=== PATIENT | female | born 1975 | race Caucasian/White ===

== ENCOUNTER 2019-02-13 21:30 | Emergency (ER) | payer SELFPAY ==
[2019-02-13] VITALS (23 sets, daily range): BP systolic 110–116; BP diastolic 54–75; PULSE 87–117; RESP 10–30; TEMP 36.7; O2SAT 93–99
--- NOTE | 2019-02-13 21:45 | ED.GENADUL_ITS ---
Discharge Plan Disposition Patient Disposition: HOME Condition: Good Discharge Details Chief Complaint: OD/Poison Clinical Impression: Accidental opiate poisoning Primary Care Provider: None,None ED Provider: Moses Sanchez Discharge Instructions Additional Instructions: Avoid any drug use in the future. If you feel there is any possible drug or alcohol problems please follow-up with the kids activities coach. Return to ED for increasing lethargy, confusion other problems. Medical Decision Making Patient arrives here awake and alert after accidental heroin overdose. She received a total of 4 mg of Narcan. She reports that she had never used heroin in the past. No intent of self-harm. Patient will be maintained on monitor and observed for the next few hours. IV fluids running. Warm blankets given. EKG unremarkable. Patient remained awake and alert throughout her stay here. She was seen by kids activities coach. She was offered Narcan at discharge which she declined. She states that she will never use any type of drugs in the future. Discharged in good condition. ECG Data Attestation: I personally reviewed and interpreted this ECG (s) as follows: Prior ECG tracings: not available for review Interpretation: Sinus at 98. Normal axis and intervals. No significant ST changes. Fair amount of artifact. HPI General Mode of arrival: EMS . Date/Time Provider Initiated Documentation: 02/13/19 21:44 . Limitations to Documentation: no limitations . Information obtained by: patient and EMS . HPI Narrative: Patient presents to ED by EMS after they were called for unresponsive patient. Patient was found to be unresponsive with no pulse and no respirations. CPR was started. She received Narcan intranasally as well as IV once it was established. After a total of 4 mg of Narcan, she woke up. She was transported here without further incident with IV fluids going. Patient had told EMS she had not used anything. In the room she admitted to snorting 1 bag of heroin which she states she has never done before in her life. She denies any physical complaints. This was not intentional or self-harm. She also had a few drinks of beer prior to using heroin tonight. Related Data Allergies Allergy/AdvReac Type Severity Reaction Status Date / Time cefaclor [From [facility]] Allergy Severe Hives Unverified 11/10/14 15:14 General Stated Complaint: OD/Poison OLEG: 2 Review of Systems Narrative: As documented in HPI otherwise negative as below. Const: no fever, chills, weakness Resp: no cough, SOB, pleuritic pain CV: no CP, diaphoresis, edema, syncope GI: no abdominal pain, nausea, vomiting, diarrhea Neuro: no headache, numbness, focal weakness, confusion PFSH Medical History No active medical problems (Chronic) Surgical History S/P breast augmentation (Chronic) Social History Smoking/Tobacco Use Status: Current every day Alcohol Intake: current Alcohol Intake frequency: a few times a week Drug use: Never Do you feel safe at home: Yes Do you feel safe in your relationship?: Yes Exam Narrative Exam Narrative: Vitals: Afebrile. Mild tachycardia but normal room air pulse ox. Const: WDWN female in NAD. HEENT: NC/AT. Normal facial exam. Eyes: Pupils small with some reaction. Neck: Supple. Trachea midline. Lungs: Normal respiratory effort. Lungs are clear. Cor: RRR without murmur/gallop. Good radial pulses. GI: Soft. NT/ND. Neuro: A+O x 3. CN grossly in tact. Normal speech, mental status, strength and sensation. Ext: No C/C/E. Skin: Warm and dry. Psych: Denies depression or suicidal ideation. Course Vital Signs Vital signs: Vital Signs Temperature 98.1 F 02/13/19 21:37 Pulse 113 H 02/13/19 21:37 Respiratory Rate 24 02/13/19 21:37 Blood Pressure 110/54 L 02/13/19 21:37 Pulse Oximetry 97 02/13/19 21:37 Temperature 98.1 F 02/13/19 21:37 Pulse 113 H 02/13/19 21:37 Respiratory Rate 24 02/13/19 21:37 Blood Pressure 110/54 L 02/13/19 21:37 Blood Pressure Position Sitting 02/13/19 21:37 Pulse Oximetry 97 02/13/19 21:37 Oxygen Delivery Method Room Air 02/13/19 21:37 Oxygen Flow Rate 0 02/13/19 21:37 Pain Level 0 02/13/19 21:37
== END 2019-02-13 23:50 | disposition home or self-care (01) ==
PROVIDERS: Emergency Provider Emergency Medicine
DX: T40.1X1A Poisoning by heroin, accidental (unintentional), initial encounter (principal); F11.10 Opioid abuse, uncomplicated
CPT/HCPCS: 93005; 99284; 93010

== ENCOUNTER 2019-03-22 13:30 | Emergency (ER) | payer SELFPAY ==
[2019-03-22 13:38] VITALS: BP 106/42; PULSE 102; RESP 16; TEMP 36.7; O2SAT 98
[2019-03-22 13:48] LABS: Clarity Cloudy (Clear); Glucose Color Interference mg/dL (Negative); Leukocyte Esterase Color Interference (Negative); Nitrite Color Interference (Negative)
[2019-03-22 13:49] LABS: Bilirubin Color Interference (Negative); Blood Color Interference (Negative); Ketones Color Interference mg/dL (Negative); Urobilinogen Color Interference EU/dL (Up TO 0.2)
[2019-03-22 14:04] LABS: WBC >50 HPF (0-5)
[2019-03-22 14:05] LABS: Bacteria Rare HPF (Negative); C & S Indicated? Yes
--- NOTE | 2019-03-22 14:10 | ED.GENADUL_ITS ---
Discharge Plan Disposition Patient Disposition: HOME Discharge Details Chief Complaint: Urinary Clinical Impression: UTI (urinary tract infection) Primary Care Provider: None,None ED Provider: Andrey Horvath Home Meds and New Rx's Prescriptions: New ciprofloxacin HCl 250 mg tablet 250 mg PO Q12H 3 Days Qty: 6 RF: 0 No Action ascorbic acid (vitamin C) [Vitamin C] 1,000 mg Tablet Extended Release 1,000 mg PO DAILY RF: 0 ibuprofen [IBU-200] 200 mg Tablet 400 mg PO Q6H PRNRF: 0 No Known Home Meds RF: 0 Discharge Instructions Instructions: Urinary Tract Infection in Women (ED) Additional Instructions: Your urinalysis is significant for evidence of infection. It is very important that you take the entire course of the antibiotics for which we have provided you. Return to the emergency department should you develop worsening symptoms, fever vomiting or severe pain. Referrals: Andrey Horvath PA [Emergency Provider] - Return if symptoms worsen Discharge Data Discharge Date/Time-TO BE ENTERED AT DEPARTURE: 03/22/19 14:20 Medical Decision Making This is a nontoxic-appearing 43-year-old female with symptoms concerning for urinary tract infection. UA confirms UTI. Vital signs are otherwise stable and she shows no outward signs of sepsis/pyelonephritis. Antibiotic prescription for ciprofloxacin 250 mg provided. Discussed return precautions HPI General Date/Time Provider Initiated Documentation: 03/22/19 14:10 . HPI Narrative: Patient is a 43-year-old female with a significant history for frequent urinary tract infections presents to the emergency department with roughly 6 days of UTI symptoms. She admits to frequency, urgency and dysuria. No fevers, vomiting or back pain. Related Data Home Medications Medication Instructions Recorded Confirmed Unknown [No Known Home Meds] 03/22/19 03/22/19 ascorbic acid (vitamin C) [Vitamin 1,000 mg PO DAILY 03/22/19 03/22/19 C] ciprofloxacin HCl 250 mg PO Q12H 3 Days #6 tab 03/22/19 ibuprofen [IBU-200] 400 mg PO Q6H PRN 03/22/19 03/22/19 Previous Rx's Medication Instructions Recorded ciprofloxacin HCl 250 mg PO Q12H 3 Days #6 tab 03/22/19 Allergies Allergy/AdvReac Type Severity Reaction Status Date / Time [facility] Allergy Severe Hives Unverified 03/22/19 13:43 General Stated Complaint: Urinary OLEG: 4 Review of Systems Constitutional Constitutional: Denies chills and Denies fever(s) Gastrointestinal Gastrointestinal: Denies abdominal pain, Denies nausea and Denies vomiting Genitourinary Genitourinary: Denies hematuria, Reports dysuria, Denies flank pain, Reports urinary hesitancy and Reports urinary urgency PFSH Medical History No active medical problems (Chronic) Surgical History S/P breast augmentation (Chronic) Social History Smoking/Tobacco Use Status: Current every day Alcohol Intake: current Alcohol Intake frequency: a few times a week Drug use: Never Do you feel safe at home: Yes Do you feel safe in your relationship?: Yes Exam Const General: cooperative, healthy appearing, comfortable and no acute distress Chest Chest: normal inspection of the chest Resp Effort & Inspection: normal respiratory effort and able to speak in complete sentences Back/Spine/Pelvis Back: no CVA tenderness Course Vital Signs Vital signs: Vital Signs Temperature 36.7 C 03/22/19 13:38 Pulse 102 H 03/22/19 13:38 Respiratory Rate 16 03/22/19 13:38 Blood Pressure 106/42 L 03/22/19 13:38 Pulse Oximetry 98 03/22/19 13:38 Temperature 36.7 C 03/22/19 13:38 Temperature Source Temporal Artery Scan 03/22/19 13:38 Pulse 102 H 03/22/19 13:38 Respiratory Rate 16 03/22/19 13:38 Respiratory Effort Non-Labored 03/22/19 13:42 Blood Pressure 106/42 L 03/22/19 13:38 Blood Pressure Position Sitting 03/22/19 13:38 Pulse Oximetry 98 03/22/19 13:38 Oxygen Delivery Method Room Air 03/22/19 13:38 Oxygen Flow Rate 0 03/22/19 13:38 Pain Level 9 03/22/19 13:48 Lab/Test Results Lab/Test Results: 03/22/19 13:35 Urine - Reflex from Ua Urine Culture - Pending Laboratory Tests Range/Units 03/22/19 13:35 Urine Color (Yellow) [place] Urine Clarity (Clear) Cloudy Urine pH (5-8) 5.0 Ur Specific [place] (1.005-1.025) 1.020 Urine Protein (Negative) mg/dL Color interference Urine Ketones (Negative) mg/dL Color interference Urine Blood (Negative) Color interference Urine Nitrite (Negative) Color interference Urine Bilirubin (Negative) Color interference Urine Urobilinogen (Up TO 0.2) EU/dL Color interference Ur Leukocyte Esterase (Negative) Color interference Urine RBC Not Applicable Urine WBC (0-5) HPF >50 H Ur Epithelial Cells Not Applicable Urine Crystals Not Applicable Urine Bacteria (Negative) HPF Rare Urine Mucus Not Applicable Ur Culture Indicated? Yes Urine Glucose (Negative) mg/dL Color interference
== END 2019-03-22 14:21 | disposition home or self-care (01) ==
PROVIDERS: Emergency Provider Physician Assistant
DX: N39.0 Urinary tract infection, site not specified (principal); B96.20 Unspecified Escherichia coli [E. coli] as the cause of diseases classified elsewhere; Z87.440 Personal history of urinary (tract) infections
CPT/HCPCS: 87077; 99283; 81003; 81015; 87086; 87186

== ENCOUNTER 2021-04-24 11:22 | Emergency (ER) | payer SELFPAY ==
[2021-04-24 11:26] VITALS: BP 114/70; PULSE 101; RESP 14; TEMP 36.6; O2SAT 97
[2021-04-24 12:02] LABS: Bilirubin Negative (Negative); Blood Small (Negative); Clarity Sl Cloudy (Clear); Glucose Negative (Negative); Ketones Trace mg/dL (Negative); Leukocyte Esterase Small (Negative); Nitrite Negative (Negative); Specific Gravity >= 1.030 (1.005-1.025); Urobilinogen 0.2 EU/dL (Up TO 0.2)
--- NOTE | 2021-04-24 12:03 | ED.GENADUL_ITS ---
Discharge Plan Disposition Patient Disposition: HOME Condition: Stable Discharge Details Clinical Impression: Dysuria, Vaginal discharge Primary Care Provider: None,None ED Provider: Kory Yin Home Meds and New Rx's Prescriptions: New nitrofurantoin macrocrystal 100 mg capsule 100 mg PO BID 5 Days Qty: 10 0RF Rx Instructions: must administer with a meal/food Continued ibuprofen [IBU-200] 200 mg Tablet 400 mg PO Q6H [id number] Discharge Instructions Instructions: Dysuria (ED) Additional Instructions: Please be sure to follow-up with your test results and be seen by AMBULATORY NURSE; return to the emergency department for worsening symptoms Referrals: Ashley Jean MD [ [facility] STAFF PHYSICIAN] - 1 week Medical Decision Making 45-year-old female history of previous trichomoniasis, occasional UTIs, presents with urinary frequency dysuria and lower back discomfort. Denies nausea vomiting fevers chills nontoxic, resting comfortably currently, denies new sexual partners, I counseled patient that given her endorsement of mild vaginal discharge a pelvic exam would be warranted to assess cervix and vagina as well as collect gonorrhea chlamydia and vaginal pathogen swabs, patient endorses she feels uncomfortable with his examination and would like to self swab as she has done this in the past. I am amenable to this time. Consider likely UTI versus BV versus trichomoniasis versus STI versus less likely or malignancy. Pending results of UA and self swab will likely treat for suspected bacterial infection whether urinary vaginal. Will encourage follow-up with AMBULATORY NURSE and primary care. No clinical evidence of pyelonephritis at this time or systemic toxicity 14: 01 resting comfortably no acute distress. Lab would not except patient self swab, patient was amenable to pelvic exam. Scant white vaginal discharge consider physiologic versus infectious however cervix appears normal no bleeding, small inorganic material consider piece of tampon removed from area near cervix, patient did not want to stay for results and asked if we could call her, would like a prescription in case she has a UTI, I am amenable to this plan as most of her symptoms are urinary with frequency and dysuria and her discharge was not completely abnormal however will follow up vaginal pathogen gonorrhea chlamydia sent out. Return precautions given. Will be given AMBULATORY NURSE referral. HPI General Date/Time Provider Initiated Documentation: 04/24/21 11:31 . HPI Narrative: 45-year-old female history of trichomoniasis, presents with dysuria and urinary frequency, also endorses minimal malodorous vaginal discharge, denies vaginal bleeding, last menstrual period was last month, no new sexual partners, denies any flank pain nausea vomiting fevers or chills Related Data Home Medications Medication Instructions Recorded Confirmed ibuprofen 200 mg tablet (IBU-200) 400 mg PO Q6H PRN 03/22/19 04/24/21 nitrofurantoin macrocrystal 100 mg 100 mg PO BID 5 Days #10 cap 04/24/21 capsule Previous Rx's Medication Instructions Recorded nitrofurantoin macrocrystal 100 mg 100 mg PO BID 5 Days #10 cap 04/24/21 capsule Allergies Allergy/AdvReac Type Severity Reaction Status Date / Time cefaclor [From [facility]] Allergy Severe Hives Unverified 04/24/21 11:28 ciprofloxacin Allergy Hives Unverified 04/24/21 11:29 General Stated Complaint: Urinary OLEG: 4 Review of Systems Narrative: Review of Systems Constitutional: negative Eyes: negative ENT: negative Cardiovascular: negative Respiratory: negative Gastrointestinal: negative : Dysuria, urinary frequency, vaginal discharge Musculoskeletal: negative Skin: negative Neurologic: negative Psych: negative PFSH All Active Problems (Updated 04/24/21 @ 14:06 by Kory Yin MD) Dysuria (Acute) Vaginal discharge (Acute) S/P breast augmentation (Chronic) No active medical problems (Chronic) Social History Smoking/Tobacco Use Status: Current every day Tobacco Type: cigarettes Smoking risk assessment performed?: Yes Alcohol Intake: current Alcohol Intake frequency: a few times a month Drug use: Daily Substance use type: marijuana Do you feel safe at home: Yes Do you feel safe in your relationship?: Yes Exam Narrative Exam Narrative: Physical Examination General: alert, awake, cooperative, resting comfortably, no acute distress HEENT: normocephalic, atraumatic; PERRL, EOM intact, conjunctiva normal; no nasal discharge; moist mucous membranes, oral and pharyngeal mucosa normal, tolerating secretions Neck: supple, trachea midline; full ROM Chest: normal to inspection Respiratory: normal respiratory effort, speaking in full sentences, clear to auscultation, no wheezing, rales or rhonchi Cardiac: regular rate, regular rhythm, S1S2 intact, no murmurs rubs or gallops GI: abdomen soft, non-tender, non-distended; no palpable mass or hepatosplenomegaly : Normal external genitalia, scant white vaginal discharge on examination, normal-appearing cervix, small approximately 2 mm possible cotton foreign body consider small portion of retained tampon versus fabric, no bleeding no lesions Back: No CVA tenderness Skin: no lesions, rashes or trauma appreciated Neuro: AAOx3, normal speech, moving all extremitie Psych: Appropriate mood and affect Course Vital Signs Vital signs: Vital Signs Temperature 36.6 C 04/24/21 11:26 Pulse 101 H 04/24/21 11:26 Respiratory Rate 14 04/24/21 11:26 Blood Pressure 114/70 04/24/21 11:26 Pulse Oximetry 97 04/24/21 11:26 Temperature 36.6 C 04/24/21 11:26 Pulse 101 H 04/24/21 11:26 Respiratory Rate 14 04/24/21 11:26 Respiratory Effort Non-Labored 04/24/21 11:30 Blood Pressure 114/70 04/24/21 11:26 Blood Pressure Position Sitting 04/24/21 11:26 Pulse Oximetry 97 04/24/21 11:26 Oxygen Delivery Method Room Air 04/24/21 11:26 Oxygen Flow Rate 0 04/24/21 11:26 Pain Level 7 04/24/21 11:30 Lab/Test Results Lab/Test Results: Laboratory Tests Range/Units 04/24/21 11:48 Urine Color (Yellow) Yellow Urine Clarity (Clear) Sl Cloudy Urine pH (5-8) 6.0 Ur Specific [place] (1.005-1.025) >= 1.030 H Urine Protein (Negative) mg/dL 30 H Urine Ketones (Negative) mg/dL Trace H Urine Blood (Negative) Small H Urine Nitrite (Negative) Negative Urine Bilirubin (Negative) Negative Urine Urobilinogen (Up TO 0.2) EU/dL 0.2 Ur Leukocyte Esterase (Negative) Small H Urine Glucose (Negative) mg/dL Negative PAWSS Have you Been Recently Intoxicated or Drunk Within the Last 30 days?: No Have you Ever Experienced Previous Episodes of Alcohol Withdrawal?: No Have you ever Experienced Withdrawal Seizures?: No Have you ever Experienced Delirium Tremens(DT)s?: No Have you ever undergone Alcohol Rehabilitation Treatment (i.e, inpt ot outpatient treatment programs)?: No Have you ever Experienced Blackouts?: No Have you ever Combined Alcohol with other Downers within the last 90 days?: No Have you ever Combined Alcohol with any other Substance of Abuse during the last 90 days?: No Positive Blood Alcohol level on Presentation? [PCS.BAL]: No Evidence of Increased Autonomic Activity (i.e. HR>120, tremor, sweating, agitation, nausea)?: No Result: 0
[2021-04-24 12:08] LABS: Bacteria Few HPF (Negative); C & S Indicated? Yes; Casts Negative LPF (Negative); Crystals Few Amorphous HPF (Negative); Epithelial Cells Few HPF (Negative); Mucus Trace (Negative)
--- NOTE | 2021-04-24 15:51 | NUR.NOTE ---
Nursing Note: PT INFO FAXED TO [facility] TO BE SEEN WITHIN THE WEEK FOR FOLLOW UP AND REPEAT EXAM. CHANDU, ED
== END 2021-04-24 14:18 | disposition home or self-care (01) ==
PROVIDERS: Emergency Provider Emergency Medicine
DX: R30.0 Dysuria (principal); N89.8 Other specified noninflammatory disorders of vagina
CPT/HCPCS: 81025; 87491; 87591; 99284; 81003; 81015; 87086; 87480; 87510; 87660; 99283

== ENCOUNTER 2023-02-28 08:25 | Emergency (ER) | payer MEDICAID, SELFPAY ==
[2023-02-28 08:27] VITALS: BP 120/86; PULSE 90; RESP 18; TEMP 36.7; O2SAT 99
--- NOTE | 2023-02-28 08:28 | W.ED.GENAD ---
Discharge Plan Disposition Patient Disposition: Home Condition: Good Discharge Details Clinical Impression: Gardnerella vaginalis infection Primary Care Provider: None,None ED Provider: Emeli Morse Home Meds and New Rx's Prescriptions: New clindamycin HCl 300 mg capsule 300 mg PO Q12H Qty: 14 0RF No Action ibuprofen [IBU-200] 200 mg Tablet 400 mg PO Q6H PRN Discharge Instructions Instructions: Bacterial Vaginosis (ED) Additional Instructions: 1. Make a follow-up appointment with [facility] internal medicine. The [facility] office will contact you for a follow-up appoint with [facility]. Either of those providers will be able to give you the results of the lab tests that were done today and which are still pending including all the STIs, syphilis, hepatitis and HIV. 2. Do not have intercourse until all results are back and you have discussed them with your physicians. 3. Start clindamycin 300 mg twice a day for 7 days for the vaginitis. We recommend you take a probiotic while on antibiotics. Bring this prescription with you to your follow-up appointments. 4. Alternate acetaminophen every 3 hours with ibuprofen as needed for pain. Return here for any new or worrisome symptoms. Discharge Data Discharge Date/Time-TO BE ENTERED AT DEPARTURE: 02/28/23 11:32 Discharge Physician: Emeli Morse Medical Decision Making This is a 47-year-old female who presents to the emergency department with vaginal discharge after unprotected intercourse with 1 partner who she thinks has been unfaithful. She has been seen in the [place] [facility] but does not have a primary care or [facility]. On exam she does have some whitish discharge but no fishy odor. There is no cervical motion tenderness and no rash or lesions. She most likely has bacterial vaginosis or possibly trichomoniasis. She is perimenopausal. She is requesting that we test her for everything. I have explained to her that most of the lab work will not be returned today and she will need to follow-up with [facility] for the majority of the results. We will do a wet prep smear to rule out trichomoniasis and bacterial vaginosis as well as candidiasis. She has not had any itching and the discharge is not consistent with bacterial vaginosis. Patient voiced understanding and agreement with the plan. Differential Diagnosis Differential Diagnosis: PID, STI, bacterial vaginosis, Medical Records Medical records reviewed: Yes I reviewed the patient's medical records. ECG Data Interpretation: Vaginal pathology smear is positive for Gardnerella. Since the patient has been treated with metronidazole and had a recurrence we will treat her with clindamycin p.o. I have consulted [facility] regarding the dose of 300 twice daily for 7 days. HPI General Mode of arrival: ambulatory. Date/Time Provider Initiated Documentation: 02/28/23 08:28. Limitations to Documentation: no limitations. Information obtained by: patient. HPI Narrative: Time seen was on arrival in triage and in bed 9. The patient is a 47-year-old perimenopausal female who is -0-2-3. She has irregular menstrual cycles only having 1 or 2 a year. She has had a unprotected intercourse with 1 partner who she suspects may be having intercourse with other partners. She presents with with several weeks of vaginal discharge after being treated with p.o. and PV metronidazole. She tells me she has had bacterial vaginosis and trichomonas in the past. She tells me that she wants to be checked for everything. I have explained that we can certainly test her for HIV and hepatitis but most of those will be a send out. 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 She has been seen in the [place] ER several times for vaginal discharge. No dysuria. No rashes Related Data Home Medications Medication Instructions Recorded Confirmed ibuprofen 200 mg tablet (IBU-200) 400 mg PO Q6H PRN 03/22/19 04/24/21 clindamycin HCl 300 mg capsule 300 mg PO Q12H #14 caps 02/28/23 Previous Rx's Medication Instructions Recorded clindamycin HCl 300 mg capsule 300 mg PO Q12H #14 caps 02/28/23 Allergies Allergy/AdvReac Type Severity Reaction Status Date / Time cefaclor [From Ceclor] Allergy Severe Hives Unverified 04/24/21 11:28 ciprofloxacin Allergy Hives Unverified 04/24/21 11:29 General OLEG: 4 Review of Systems Narrative: see hpi PFSH All Active Problems Gardnerella vaginalis infection (Acute) S/P breast augmentation (Chronic) No active medical problems (Chronic) Social History Smoking/Tobacco Use Status: Current every day Tobacco Type: cigarettes Smoking risk assessment performed?: Yes Alcohol Intake: current Alcohol Intake frequency: a few times a month Drug use: Daily Substance use type: marijuana Housing: house Do you feel safe at home: Yes Do you feel safe in your relationship?: Yes Exam Const General: cooperative, healthy appearing, comfortable, no acute distress, well developed, well groomed and well hydrated Nutritional Appearance: average body habitus and well nourished Orientation: alert, awake and oriented x3 HENMT Head: normal to inspection, normocephalic and atraumatic Ears: hearing grossly normal bilaterally and external ears normal General nose exam: external nose normal, nares normal and no nasal discharge Face and sinus: normal facial exam, sinuses nontender and face symmetric Mouth: oral mucosae normal, lip normal, tongue normal, oropharynx normal, moist mucous membranes and other (Normal phonation. The patient is handling secretions.) Throat: posterior oropharynx normal and uvula midline Eyes General: appearance normal, both eyes and all related structures Eyelids: eyelids normal Conjunctivae: conjunctivae normal Sclera: sclerae normal Cornea: corneas normal Pupils: PERRL EOM: EOM intact bilaterally and No nystagmus Neck Neck: normal visual inspection, full ROM, no lymphadenopathy, no meningeal signs, trachea midline and supple Lymphatic: no lymphadenopathy noted Chest Chest: normal inspection of the chest Resp Effort & Inspection: normal respiratory effort, able to speak in complete sentences, no audible wheezes, no nasal flaring, no respiratory distress, no retractions, no stridor, not tachypneic, no tracheal deviation, no use of accessory muscles, No prolonged expiratory phase and other (Normal inspiratory to expiratory ratio.) Auscultation: clear to auscultation bilaterally, no rales, no rhonchi, no wheezes and no rubs Tactile Fremitus: tactile fremitus absent Cardio Jugular venous pressure: no JVD Palpation: normal PMI Rate: regular rate Rhythm: regular rhythm Heart Sounds: S1 normal, S2 normal, no gallops, no murmurs and no rubs GI Inspection: normal to inspection and non-distended Palpation: soft, no hepatosplenomegaly, no guarding and nontender Percussion: normal to percussion Auscultation: normal bowel sounds General: bladder normal to palpation and No CVA tenderness External Female Exam: normal external appearance Speculum Exam - Vagina: normal appearance of the vagina, abnormal vaginal discharge white, no foreign bodies, no lacerations, no lesions and nontender Speculum Exam - Cervix: normal appearance of the cervix, closed and nontender Bimanual Exam- Vagina & Uterus: normal bimanual exam, bladder normal to palpation, uterine mobility normal, uterine shape normal, No tender, non-tender and not enlarged Bimanual Exam- Adnexa, other: normal adnexae OB/External & Speculum: no foreign bodies Back/Spine/Pelvis Back: no CVA tenderness and No back tenderness Cervical Spine: normal cervical lordosis, cervical ROM normal, No cervical muscular tenderness, No pain with cervical ROM, No cervical spinal tenderness and No step off deformity Thoracic/Lumbar Spine: thoracic and lumbar spine normal to inspection, No thoracic spinal tenderness and No lumbar spinal tenderness Pelvis: no pain with anterior-posterior compression and no pain with lateral compression Skin General skin exam: no rashes or lesions noted, turgor normal, no petechiae, no purpura and other (Skin is normal for ethnicity.) Lesions: no lesions Rashes: no rashes Trauma: no lacerations or abrasions Neuro General: patient alert, patient awake, patient oriented x3, moves all extremities, no meningeal signs, no focal motor deficits and CN's II-XI intact bilaterally Cranial Nerves: CN's II-XI intact bilaterally, PERRL, accommodation normal, EOM intact bilaterally, no nystagmus, facial strength normal, tongue midline, hearing normal and no nystagmus Cognition: normal cognition Speech: speech normal Gait: normal gait Motor: muscle tone normal throughout and strength 5/5 throughout Sensory Exam: no sensory deficits noted Extrem General: normal to inspection, full ROM, capillary refill normal, no clubbing, cyanosis or edema and no calf tenderness Psych Appearance: grossly normal Affect: normal affect Attitude: cooperative Thought Process: normal Thought Content: normal Insight: insight good Judgment: judgment good Other: The patient appears to have capacity make medical decisions. Course I have advised the patient to take a probiotic and to avoid sexual intercourse until she has followed up with [facility] and obtain the results of the labs drawn today. I have advised her to continue the process of establishing care with [facility] and to return to the emergency department for any new or worrisome symptoms. The patient voiced understanding agreement with the discharge plan. All her questions and concerns were addressed prior to discharge
[2023-02-28 08:54] LABS: Bilirubin Negative (Negative); Blood Negative (Negative); Clarity Clear (Clear); Glucose Negative (Negative); Ketones Negative (Negative); Leukocyte Esterase Negative (Negative); Nitrite Negative (Negative); Urobilinogen 0.2 mg/dL (Up to 0.2); pH 5.5 (5-8)
[2023-02-28 10:06] LABS: HCG Qual (Serum) Negative
--- NOTE | 2023-02-28 11:19 | NUR.NOTE ---
Faxed referral to [facility] for Pt to be seen for Vanessa, Vaginal Discharge and Follow up on the Labs within 1-2 weeks.
[2023-02-28] MEDS: Clindamycin 150 MG CAP, 12 CAPS/BTL 1800 MG (11:24)
[2023-02-28] MEDS: Clindamycin 300 MG CAP PO (11:24)
[2023-03-01 18:02] LABS: HIV-1/2 Ag & Ab Screen Negative (Negative)
[2023-03-01 18:11] LABS: Hepatitis A Antibody IgM Negative (Negative); Hepatitis B Core Antibody Negative (Negative); Hepatitis B surface Ag Negative (Negative); Hepatitis C Ab w Rflx HCV PCR Negative (Negative)
[2023-03-02 11:06] LABS: Syphilis Serology (RPR) Negative (Negative)
[2023-03-02 12:48] LABS: Chlamydia Result Negative (Negative); GC Result Negative (Negative)
--- NOTE | 2023-03-08 10:10 | NUR.NOTE ---
Addendum entered by Rosie Luis 03/08/23 10:27: Spoke with Dr. Amaya. At his direction, I called the pt back, told her that she would need to be re-evaluated in order to prescribe any further medications. She can try return to ED, [facility], or try calling PCP that she is getting set up with. Original Note: Accessed pt chart to determine diagnosis of visit. Pt called stating clindamycin she took and is no better. Will give note to Dr. Amaya. Nursing Note:
== END 2023-02-28 11:32 | disposition home or self-care (01) ==
PROVIDERS: Emergency Provider Emergency Medicine Emergency Medical Services
DX: N76.0 Acute vaginitis (principal); B96.89 Other specified bacterial agents as the cause of diseases classified elsewhere
CPT/HCPCS: 86704; 86709; 86803; 87340; 87389; 87491; 87591; 99283; 81003; 84703; 86592; 87480; 87510; 87660; 99284

== ENCOUNTER 2023-04-26 10:58 | Outpatient (REF) | payer MEDICAID, SELFPAY | END 2023-04-26 10:59 | disposition home or self-care (01) | LOC: LBN 10:58 | PROVIDERS: Visit Provider Obstetrics & Gynecology | DX: N89.8 Other specified noninflammatory disorders of vagina (principal) | CPT/HCPCS: 87480; 87510; 87660 ==

== ENCOUNTER 2023-07-22 02:35 | Outpatient (CLI) | payer MEDICAID, SELFPAY ==
[2023-07-22 12:51] LABS: ALT 27 U/L (14-59); AST 14 U/L (15-37); Albumin 3.9 g/dL (3.4-5.0); Alkaline Phosphatase 68 U/L (46-116); Anion Gap 5.4 mmol/L (3-11); BUN 10 mg/dL (7-18); Bilirubin, Total 0.2 mg/dL (0.2-1.0); CO2 28.6 mmol/L (21.0-32.0); CREATININE 0.7 mg/dL (0.55-1.02); Calcium 9.4 mg/dL (8.5-10.1); Calculated LDL 70 mg/dL (<100); Chloride 104 mmol/L (98-107); Cholesterol 136 mg/dL (<200); Estimated GFR 106.62 (mL/min/1.73m2); Glucose 100 mg/dL (74-106); HDL Cholesterol 57 mg/dL (40-60); Potassium 4.1 mmol/L (3.5-5.1); Sodium 138 mmol/L (136-145); Total Protein 7.4 g/dL (6.4-8.2); Triglyceride 49 mg/dL (<150)
== END 2023-07-22 02:36 | disposition home or self-care (01) ==
LOC: LBO 02:35
PROVIDERS: PCP Family Medicine; Visit Provider Family Medicine
DX: Z13.6 Encounter for screening for cardiovascular disorders (principal)
CPT/HCPCS: 36415; 80053; 80061

== ENCOUNTER 2023-10-11 16:18 | Outpatient (REF) | payer MEDICAID, SELFPAY ==
[2023-10-13 12:16] LABS: Chlamydia Result Negative (Negative); GC Result Negative (Negative)
[2023-10-13 14:23] LABS: Bacterial Vaginosis (BV) Positive (Negative); Candida glabrata Negative (Negative); Candida species group Negative (Negative); Trichomonas vaginalis Negative (Negative)
== END 2023-10-11 16:19 | disposition home or self-care (01) ==
LOC: LBN 16:18
PROVIDERS: PCP Family Medicine; Visit Provider Nurse Practitioner
DX: N89.8 Other specified noninflammatory disorders of vagina (principal)
CPT/HCPCS: 81513; 87481; 87491; 87591; 87661

== ENCOUNTER 2023-12-15 14:46 | Outpatient (REF) | payer MEDICAID, SELFPAY | END 2023-12-15 14:47 | disposition home or self-care (01) | LOC: LBN 14:46 | PROVIDERS: PCP Family Medicine; Visit Provider Family Medicine | DX: N89.8 Other specified noninflammatory disorders of vagina (principal) | CPT/HCPCS: 87480; 87510; 87660 ==

== ENCOUNTER 2023-12-16 11:52 | Outpatient (CLI) | payer MEDICAID, SELFPAY ==
--- NOTE | 2023-12-16 13:26 | DI.RAD_ITS ---
Exam(s) XR LUMBAR SPINE COMP W FLEX/EX EXAM: XR LUMBAR SPINE COMP W FLEX/EX CLINICAL HISTORY: M54.50 Low back pain. TECHNIQUE: 2D digital imaging was performed. Seven views. Flexion and extension lateral views were performed in addition to the routine views. Exam was performed upright. COMPARISON: No exams were available for comparison FINDINGS: BONES: No fracture or destructive lesion. Vertebral body heights are maintained. Mild facet hypert rophy identified at L5-S1. DISKS: Moderate narrowing of the L5-S1 disc space. Intervertebral disc spaces are maintained. ALIGNMENT: Lumbar spinal alignment is within normal limits. No subluxation with flexion or extension. SOFT TISSUE: Normal. Lung bases are clear. IMPRESSION: Mild degenerative changes at L5- S1. DATA REPOSITORY: RADIATION DOSE DELIVERED:
== END 2023-12-16 12:12 ==
LOC: DI 11:53
PROVIDERS: PCP Family Medicine; Visit Provider Nurse Practitioner Family
DX: M47.817 Spondylosis without myelopathy or radiculopathy, lumbosacral region (principal)
CPT/HCPCS: 72114

== ENCOUNTER 2024-01-17 09:34 | Outpatient (REF) | payer MEDICAID, SELFPAY | END 2024-01-17 09:35 | disposition home or self-care (01) | LOC: LBN 09:34 | PROVIDERS: PCP Family Medicine; Visit Provider Nurse Practitioner | DX: N89.8 Other specified noninflammatory disorders of vagina (principal) | CPT/HCPCS: 87480; 87510; 87660 ==

== ENCOUNTER 2024-01-26 02:23 | Outpatient (CLI) | payer MEDICAID, SELFPAY ==
--- NOTE | 2024-01-26 06:30 | DI.MRI_ITS ---
Exam(s) MR LUMBAR SPINE WO EXAM: MR LUMBAR SPINE WO CLINICAL HISTORY: Low back pain to left lower extremity,lumbar spondylosis,radiculitis,m54.42. TECHNIQUE: Multiplanar multisequence MRI of the Lumbar spine was performed. COMPARISON: CR XR LUMBAR SPINE COMP W FLEX/EX from 12/16/2023 FINDINGS: Conus medullaris is at normal level. There is no evidence of conus mass nor subjacent clumping of in trathecal nerve roots to suggest arachnoiditis. The distal thecal sac appears unremarkable.There is no evidence of Tarlov intrasacral cysts nor other significant findings within the sacral canal Bones:There are no fractures nor ominous osseous lesions in the lumbar vertebral bodies and visualize d sacrum. With respect to the individual levels... T12-L1: Unremarkable L1-2: Normal disc height and signal. No disc herniation nor central canal stenosis.No foraminal steno sis L2-3: Normal disc height. No disc herniation nor central canal stenosis.No foraminal stenosis.No face t arthropathy. L3-4: Normal disc height. No disc herniation or central canal stenosis.No foraminal stenosis.No face t arthropathy. L4-5: Slightly decreased disc height. There is a central subligamentous disc protrusion at this leve l which extends posteriorly 3 mm and is 10 mm wide. This slightly indents the anterior thecal sac. Central canal dimensions are lower normal. There is no extension into the exiting neural foramina wh ich are patent bilaterally. Facet joints appear unremarkable at this level. L5-S1: There is chronic disc space narrowing at this level and Modic type 2 sub endplate fatty marrow changes on the left side of the disc space. There is also lateral osteophytes on the left side at t his level. Posteriorly at this level there is no disc herniation or central canal stenosis. Mild un ilateral left-sided foraminal stenosis noted. However, the exiting nerve root does not appear flatte cherie Soft tissues: paraspinal soft tissues appear unremarkable. IMPRESSION: 1. At L4-5 level there is a central subligamentous disc protrusion as described above. 2. At L5-S1 level there is chronic advanced disc space narrowing and lateral left osteophytes. There is no disc herniation at this level. There is mild left-sided foraminal stenosis at this level. DATA REPOSITORY:
== END 2024-01-26 02:43 ==
LOC: DI 02:23
PROVIDERS: PCP Family Medicine; Visit Provider Anesthesiology Pain Medicine
DX: M47.816 Spondylosis without myelopathy or radiculopathy, lumbar region; M54.16 Radiculopathy, lumbar region
CPT/HCPCS: 72148

== ENCOUNTER 2024-02-16 17:48 | Outpatient (REF) | payer MEDICAID, SELFPAY | END 2024-02-16 17:49 | disposition home or self-care (01) | LOC: LBN 17:48 | PROVIDERS: PCP Family Medicine; Visit Provider Advanced Practice Midwife | DX: N89.8 Other specified noninflammatory disorders of vagina (principal) | CPT/HCPCS: 87480; 87510; 87660 ==

== ENCOUNTER 2024-03-12 02:57 | Outpatient (CLI) | payer MEDICAID, SELFPAY ==
--- NOTE | 2024-03-12 07:30 | DI.MAMMO_ITS ---
Exam(s) MG MAMMO SCREENING 60 MIN DUR EXAM: MG MAMMO SCREENING 60 MIN DUR CLINICAL HISTORY: breast cancer screening,RUPTURED LT IMPLANT,t85.43XA TECHNIQUE: Bilateral full field digital CC and MLO mammographic images were obtained with 3D tomosyn thesis and utilizing computer aided detection (CAD). COMPARISON: This is a baseline examination. FINDINGS: The patient has bilateral breast implants. The patient has a known ruptured left breast implant. Th e right breast implant is unremarkable. Masses/Architectural Distortion: None seen. Microcalcifications: No suspicious pleomorphic-type are seen. Skin Thickening/Nipple Retraction: None. IMPRESSION: 1. There is no evidence for malignancy seen at this time. 2. Unless there is more urgent need, screening mammography is recommended, as per [employer] [place] guidelines. BI-RADS Category 1 - Negative Breast Density - Category B - Scattered areas of fibroglandular density Breast density category C or D implies that the patient has dense breast tissue. Dense breast tissue is very common and is not abnormal but dense breast tissue can make it harder to find cancer on a ma mmogram. Also, dense breast tissue may increase their breast cancer risk. This information about the result of the mammogram report was provided to the patient to raise their awareness. Use this report when you speak with the patient about their risks for breast cancer, which includes their family hist ory. At that time, you may recommend for more screening tests (Ultrasound or MRI) as they might be us eful based on their risk. A negative radiographic report should not delay biopsy if a dominant or clinically suspicious mass is present. Up to ten percent of cancers are not identified on mammography. A negative report may reinforce clinical impression. Adenosis and dense breasts may obscure an underlying neoplasm. False positive reports average 6 to 10%. Patient will receive a letter notifying them of these results.
== END 2024-03-12 03:17 ==
LOC: DI 02:57
PROVIDERS: PCP Family Medicine; Visit Provider Family Medicine
DX: T85.43XA Leakage of breast prosthesis and implant, initial encounter (principal); Z12.31 Encounter for screening mammogram for malignant neoplasm of breast; R92.323 Mammographic fibroglandular density, bilateral breasts
CPT/HCPCS: 77063; 77067

== ENCOUNTER 2024-06-21 10:15 | Outpatient (CLI) | payer MEDICAID, SELFPAY ==
--- NOTE | 2024-06-21 15:15 | DI.RAD_ITS ---
Exam(s) XR CHEST 2V PA LATERAL EXAM: XR CHEST 2V PA LATERAL CLINICAL HISTORY: J98.8 RESPIRATORY DISORDER RHONCHI AND WHEEZING TECHNIQUE: 2D digital imaging was performed. Two views. COMPARISON: No exams were available for comparison FINDINGS: HEART: Normal size. Aorta: Not dilated. PULMONARY VASCULATURE: Normal. MEDIASTINUM: Unremarkable. LUNGS: Clear. Emphysematous changes greater at the right lung apex. PLEURAL SPACE: No pleural effusion or pneumothorax. BONE:Unremarkable for age. SOFT TISSUES: Unremarkable. IMPRESSION: No acute abnormality. DATA REPOSITORY: RADIATION DOSE DELIVERED:
== END 2024-06-21 10:35 ==
LOC: DI 11-01 10:15
PROVIDERS: PCP Family Medicine; Visit Provider Family Medicine
DX: J98.8 Other specified respiratory disorders (principal)
CPT/HCPCS: 71046

== ENCOUNTER 2024-06-25 11:57 | Outpatient (CLI) | payer MEDICAID, SELFPAY ==
[2024-06-25 12:31] LABS: Abs Immature Grans 0.06 10^3/uL (0.0-0.06); Absolute Eosinophil Count 0.03 10^3/uL (0.0-0.7); Absolute Lymphocyte Count 0.87 10^3/uL (1.2-3.4); Basophils % 0.6 %; Eosinophils % 0.2 %; HCT 39.4 % (36.0-46.0); Immature Grans % 0.4 %; MCH 31.2 pg (27.0-33.0); MCV 95 fL (80-95); MPV 8.9 fL (8.0-11.0); Monocytes % 7.4 %; Neutrophils % 85.4 %; Platelet Count 372 10^3/uL (130-400); RBC 4.17 10^6/uL (3.93-5.22); RDW 12.9 % (11.7-14.6); RDW-SD 44.9 fL; WBC 14.53 10^3/uL (4.4-10.8)
[2024-06-25 12:32] LABS: Absolute Basophil Count 0.09 10^3/uL (0.0-0.2); Absolute Monocyte Count 1.08 10^3/uL (0.1-0.8); Absolute Neutrophil Count 12.41 10^3/uL (1.2-6.7)
[2024-06-25 12:51] LABS: D-Dimer 585 ng/mlFEU (<500)
[2024-06-27 20:45] LABS: Coccidioides Ab Scr w/Reflex Negative (Negative)
== END 2024-06-25 11:58 | disposition home or self-care (01) ==
LOC: LBO 11:58
PROVIDERS: PCP Family Medicine; Visit Provider Family Medicine
DX: R05.9 Cough, unspecified (principal); J98.8 Other specified respiratory disorders
CPT/HCPCS: 36415; 86635; 87798; 85025; 85379

== ENCOUNTER 2024-06-27 02:21 | Outpatient (CLI) | payer MEDICAID, SELFPAY ==
--- NOTE | 2024-06-27 07:32 | DI.CT_ITS ---
Exam(s) CT CHEST PE CTA EXAM: CT CHEST PE CTA CLINICAL HISTORY: +D-dimer,? PE,PLEURODYNIA,r07.81. TECHNIQUE: Imaging Protocol: Axial CT angiography was performed with multi-slice acquisition and mu lti-planar and/or 3D reconstructions. Lung Computer Aided Detection (CAD) was utilized. CONTRAST MATERIAL: Intravenous: Omnipaque 350 contrast volume:70 mL COMPARISON: MR MR LUMBAR SPINE WO from 01/26/2024 CR XR CHEST 2V PA LATERAL from 06/21/2024 FINDINGS: Tracheobronchial tree: Patent where visualized. No bronchiectasis. There is mucous plugging seen in airway branches in the left lingula and left lower lobe. Pulmonary parenchyma: There are severe emphysematous changes present particularly in the right lung a pex. Bilateral multifocal infiltrates are now present, most marked in the left lingula and the left lower lobe. Pulmonary Arteries: No evidence of filling defect to suggest pulmonary emboli. Mediastinum and Sakina: Mildly enlarged lymph nodes are seen in the mediastinum which are likely reacti ve. The esophagus is grossly unremarkable. Visualized thyroid gland: Unremarkable. Pleura: There is a tiny left pleural effusion. No right pleural effusion. No pneumothorax. Heart: The heart is not dilated. No coronary artery calcifications are seen. No pericardial effusion. Aorta: Thoracic aorta non-dilated. No evidence of dissection. Upper abdomen: There is a small cyst in the left kidney. No follow-up is recommended. This was pre sent on the MRI of the lumbar spine from 01/26/2024. Soft tissues: Unremarkable. Bones: Within normal limits for the patient's age. IMPRESSION: 1. No evidence of pulmonary embolism, thoracic aortic dissection or aneurysm. 2. Multifocal infiltrates most suggestive of pneumonia. 3. Severe pulmonary emphysema. RADIATION DOSE DELIVERED: 60.04mGy.cm Total DLP DATA REPOSITORY: All CT scans at this facility are submitted to the National Radiology Data Registry (NRDR) Dose Index Registry (DIR) with the [employer] (ACR). RADIATION OPTIMIZATION: All CT scans at this facility use at least one of these dose optimization te chniques: automated exposure control; mA and/or kV adjustment per patient size (includes targeted exa ms where dose is matched to clinical indication); or iterative reconstruction.
[2024-06-27] MEDS: Normal Saline - Diluent 50 ML VIAL IJ (11:22)
[2024-06-27] MEDS: Omnipaque 350 MG/ML 500 ML BTL-Imaging package 70 ML IJ (11:23)
== END 2024-06-27 02:41 ==
LOC: DI 02:23
PROVIDERS: PCP Family Medicine; Visit Provider Family Medicine
DX: R07.81 Pleurodynia (principal); J43.8 Other emphysema
CPT/HCPCS: 71275

== ENCOUNTER 2024-07-26 15:23 | Emergency (ER) | payer MEDICAID, SELFPAY ==
[2024-07-26 15:25] VITALS: BP 116/60; PULSE 81; RESP 18; O2SAT 97
[2024-07-26 15:26] VITALS: BP 116/60; PULSE 80; O2SAT 97
[2024-07-26 15:31] VITALS: BP 104/57; PULSE 73; O2SAT 97
--- NOTE | 2024-07-26 15:45 | DI.CT_ITS ---
Exam(s) CT BRAIN NECK CTA EXAM: CT BRAIN NECK CTA CLINICAL HISTORY: severe sudden onset headaches [id number]. TECHNIQUE: Imaging Protocol: Axial CT angiography was performed with multi-slice acquisition and mu lti-planar and/or 3D reconstructions. CONTRAST MATERIAL: Intravenous: Omnipaque 350 contrast volume:70 mL COMPARISON: No exams were available for comparison FINDINGS: CT Head W/O and W: Ventricles and Extra axial spaces: Normal in size and morphology for the patient's age. Hemorrhage: None. Cerebral parenchyma: No mass effect or evidence of an acute territorial infarct. Midline shift: None. Brainstem/Cerebellum: Normal. Calvarium: Normal. Visualized Paranasal sinuses/Mastoids: There is near complete opacification of the left maxillary sin us. There is mild mucosal thickening in the right maxillary sinus. The remaining visualized paranas al sinuses are clear. There is a small amount of fluid seen in the left mastoid air cells. The righ t mastoid air cells are clear. Soft Tissues: Unremarkable. Enhancement: Unremarkable. CTA Neck W: Common Carotid: Right: No dissection, occlusion or significant stenosis. Left: No dissection, occlusion or significant stenosis. External Carotid: Right: No occlusion or significant stenosis. Left: No occlusion or significant stenosis. Internal Carotid: Right: No dissection, occlusion or significant stenosis. Left: No dissection, occlusion or significant stenosis. Vertebral Artery: Right: No dissection, occlusion or significant stenosis. Left: No dissection, occlusion or significant stenosis. Lung Apices: Moderate emphysematous changes are seen in the lungs. Bones: Within normal limits for the patient's age. Soft Tissues: Normal. Thyroid gland: There are few tiny hypodensities in the thyroid gland. No follow-up is recommended. CTA Brain W: Internal Carotid Arteries: Normal. Anterior Cerebral Arteries: Right: No aneurysm, occlusion or significant stenosis. Left: No aneurysm, occlusion or significant stenosis. Middle Cerebral Arteries: Right: No aneurysm, occlusion or significant stenosis. Left: No aneurysm, occlusion or significant stenosis. Posterior Cerebral Arteries: Right: No aneurysm, occlusion or significant stenosis. Left: No aneurysm, occlusion or significant stenosis. Vertebral Arteries: Right: No aneurysm, occlusion or significant stenosis. Left: No aneurysm, occlusion or significant stenosis. Basilar Artery: No aneurysm, occlusion or significant stenosis. IMPRESSION: 1. No large vessel occlusion or significant stenosis on the CT angiography of the head. 2. No acute intracranial process. 3. No occlusion or significant stenosis on the CT angiography of the neck. 4. Left maxillary sinusitis. RADIATION DOSE DELIVERED: 2,188.16mGy.cm Total DLP DATA REPOSITORY: All CT scans at this facility are submitted to the National Radiology Data Registry (NRDR) Dose Index Registry (DIR) with the [employer] (ACR). RADIATION OPTIMIZATION: All CT scans at this facility use at least one of these dose optimization te chniques: automated exposure control; mA and/or kV adjustment per patient size (includes targeted exa ms where dose is matched to clinical indication); or iterative reconstruction.
[2024-07-26 15:46] VITALS: BP 118/73; PULSE 69; O2SAT 97
[2024-07-26 16:00] VITALS: BP 127/87; PULSE 70; O2SAT 99
[2024-07-26 16:13] LABS: Abs Immature Grans 0.02 10^3/uL (0.0-0.06); Absolute Basophil Count 0.04 10^3/uL (0.0-0.2); Absolute Eosinophil Count 0.16 10^3/uL (0.0-0.7); Absolute Lymphocyte Count 2.06 10^3/uL (1.2-3.4); Absolute Neutrophil Count 4.28 10^3/uL (1.2-6.7); Basophils % 0.6 %; Eosinophils % 2.3 %; HCT 40.2 % (36.0-46.0); HGB 13.1 g/dL (11.2-15.7); Immature Grans % 0.3 %; Lymphocytes % 29.2 %; MCH 30.4 pg (27.0-33.0); MCHC 32.6 % (32.0-36.0); MCV 93 fL (80-95); MPV 9.1 fL (8.0-11.0); Monocytes % 7.1 %; Neutrophils % 60.5 %; Platelet Count 241 10^3/uL (130-400); RBC 4.31 10^6/uL (3.93-5.22); RDW 13.4 % (11.7-14.6); RDW-SD 45.9 fL; WBC 7.06 10^3/uL (4.4-10.8)
[2024-07-26] MEDS: diphenhydrAMINE 50 MG/ML VIAL 25 MG IVP (16:40)
[2024-07-26] MEDS: Ketorolac 15 MG/ML VIAL IVP (16:40)
[2024-07-26] MEDS: Metoclopramide 10 MG/2 ML VIAL IVP (16:40)
[2024-07-26] MEDS: Dexamethasone 10 MG/ML VIAL IVP (16:40)
[2024-07-26] MEDS: SUMAtriptan 25 MG TAB PO (16:41)
[2024-07-26] MEDS: Normal Saline 1,000 ML 1000 ML IV (16:41)
[2024-07-26 16:42] LABS: ALT 18 U/L (14-59); AST 15 U/L (15-37); Alkaline Phosphatase 92 U/L (46-116); Anion Gap 9.9 mmol/L (3-11); BUN 8 mg/dL (7-18); Bilirubin, Total 0.3 mg/dL (0.2-1.0); C-Reactive Protein < 0.50 mg/dL (<or=0.5); CO2 28.1 mmol/L (21.0-32.0); CREATININE 0.8 mg/dL (0.55-1.02); Calcium 9.3 mg/dL (8.5-10.1); Chloride 103 mmol/L (98-107); Estimated GFR 90.27 (mL/min/1.73m2); Glucose 100 mg/dL (74-106); Potassium 3.5 mmol/L (3.5-5.1); Sodium 141 mmol/L (136-145); TSH (W/Ref FT4) 1.18 uIU/mL (0.36-3.74)
[2024-07-26 16:53] VITALS: BP 108/68; PULSE 65; O2SAT 99
[2024-07-26] MEDS: Omnipaque 350 MG/ML 100 ML BTL 70 ML IJ (16:57)
[2024-07-26] MEDS: Normal Saline - Diluent 50 ML VIAL IJ (16:58)
--- NOTE | 2024-07-26 17:53 | W.ED.GENAD ---
Discharge Plan Disposition Patient Disposition: Home Condition: Stable Discharge Details Clinical Impression: Cluster headache, Left maxillary sinusitis Primary Care Provider: John Jovel ED Provider: Kyle Cooper Home Meds and New Rx's Prescriptions: New amoxicillin-pot clavulanate 875-125 mg tablet 1 tab PO BID 10 Days Qty: 20 0RF sumatriptan succinate 25 mg tablet See Rx Instructions .ROUTE .COMPLEX Qty: 30 0RF Rx Instructions: take 1 tab at onset of headache; if no relief may repeat 1 tab after at least 2 hrs; max = 4 tabs/24 hr Continued acetaminophen 500 mg capsule 1,000 mg PO Q6H PRN (Reason: Tooth pain) gabapentin 800 mg tablet See Rx Instructions PO DAILY Qty: 450 3RF Rx Instructions: 2 tabs a.m.; 1 afternoon; 2 evening orally daily ibuprofen 800 mg tablet 800 mg PO TID PRN (Reason: pain) Qty: 270 3RF albuterol sulfate [Ventolin HFA] 90 mcg/actuation HFA aerosol inhaler 2 puff inhalation Q6H PRN (Reason: shortness of breath or wheezing) Qty: 6.7 0RF Discharge Instructions Instructions: Cluster Headache, Amoxicillin and Clavulanate, Sumatriptan, Ear Wax Impaction ED, Sinusitis, Adult ED Additional Instructions: You were seen in the emergency department for your severe headaches ongoing for 3 weeks, the scan of your head shows no acute abnormalities, your laboratory workup is very benign with no signs of any infection or electrolyte disturbance, no sign of any inflammatory marker elevations indicated auto immune vasculitis. Incidentally you do have a left-sided sinus infection. When you feel a headache coming on you should take 1000 mg of Tylenol, 400 mg of ibuprofen, 1 tablet of Benadryl, I have sent you a prescription for a daily migraine prevention medication called sumatriptan, please research some of the nontraditional cluster headache treatments and try at your own discretion. You have a severe impaction of earwax in your left ear, please soak your ear with Colace liquid and add half capful of hydrogen peroxide, this combination is very good at breaking up your earwax and then purchase an [id number] ear irrigation kit and flush with warm water only, do not use cold water. Referrals: John Jovel, DO [Primary Care Provider] - Discharge Data Discharge Date/Time-TO BE ENTERED AT DEPARTURE: 07/26/24 18:59 HPI General Date/Time Provider Initiated Documentation: 07/26/24 15:40. HPI Narrative: 48 year-old female presents to ED today by POV/ambulating with a chief complaint of severe headaches, daily for 3 weeks, seen at PCP recommended ED evaluation. Quality described as severe L sided headache, with some drooping of L eye and lacrimation with headache, mild blurry vision, L ear pain, no radiation to fever, motor deficit, slurred speech, chest pain, loss of vision/hearing, shortness of breath, vertigo. Severity is described as 10/10. Palliating factors include nothing helping at home. Provoking factors include nothing specific. Events leading up to the incident/Associated Symptoms: Patient has not had imaging performed yet. Patient not anticoagulated. Related Data Home Medications ?Medication ?Instructions ?Recorded ?Confirmed acetaminophen 500 mg capsule 1,000 mg PO Q6H PRN Tooth pain 07/08/23 07/26/24 ibuprofen 800 mg tablet 800 mg PO TID PRN pain #270 tabs 01/17/24 07/26/24 albuterol sulfate 90 mcg/actuation 2 puff inhalation Q6H PRN 06/27/24 07/26/24 aerosol inhaler (Ventolin HFA) shortness of breath or wheezing #6.7 grams gabapentin 800 mg tablet See Rx Instructions PO DAILY #450 07/10/24 07/26/24 tabs amoxicillin 875 mg-potassium 1 tab PO BID 10 days #20 tabs 07/26/24 clavulanate 125 mg tablet sumatriptan succinate 25 mg tablet See Rx Instructions PO .COMPLEX 07/26/24 #30 tabs Previous Rx's ?Medication ?Instructions ?Recorded ibuprofen 800 mg tablet 800 mg PO TID PRN pain #270 tabs 01/17/24 albuterol sulfate 90 mcg/actuation 2 puff inhalation Q6H PRN 06/27/24 aerosol inhaler (Ventolin HFA) shortness of breath or wheezing #6.7 grams gabapentin 800 mg tablet See Rx Instructions PO DAILY #450 07/10/24 tabs amoxicillin 875 mg-potassium 1 tab PO BID 10 days #20 tabs 07/26/24 clavulanate 125 mg tablet sumatriptan succinate 25 mg tablet See Rx Instructions PO .COMPLEX 07/26/24 #30 tabs Allergies Allergy/AdvReac Type Severity Reaction Status Date / Time cefaclor (From [facility]) Allergy Severe Hives Verified 07/26/24 15:31 ciprofloxacin AdvReac Mild Ankle Verified 07/26/24 15:31 swelling General Stated Complaint: Headache OLEG: 3 Review of Systems All systems reviewed & are unremarkable except as noted in HPI and below Exam Narrative Exam Narrative: GENERAL APPEARANCE: Well-nourished, non-toxic, awake and alert, atraumatic, no acute distress. SKIN: Warm, pink, dry, intact, without rashes/lesions/ulcerations. HEAD: Normocephalic, atraumatic, normal hair distribution for gender/age, no tenderness to light touch to L parietal scalp EYES: Normal conjunctiva, no exudates on lids/lashes, EOMs intact without nystagmus, pupils PERRLA, vision grossly intact, visual peralta intact ENT: Nares patent, no circumoral cyanosis, no facial swelling, L TM cerumen impaction, R TM wnl, no mastoid tenderness bilaterally NECK: Supple, trachea midline, painless cervical ROM. LUNGS/CHEST: Non-labored respirations, normal A/P diameter, symmetrical expansion, no chest wall deformity HEART (CV/PV): No peripheral edema, no JVD. ABDOMEN: Soft, non-distended, no guarding. MSK: Normal ROM, no swelling/deformity to bilateral UEs or LEs, moving all extremities without weakness, no cyanosis, spine midline without tenderness, normal curvature. NEURO: Mental Status AAOx4 - alert to person, place, time, events No facial droop, no forehead involvement, FNF wnl Motor: No focal weakness - strength 5/5 in bilateral UEs and LEs, proximal and distal, symmetric. Sensory: sensation intact to light touch globally. Gait normal: patient ambulated without ataxia into ED room. PSYCH: euthymic, cooperative, pleasant, appropriate speech Course Vital Signs Vital signs: Vital Signs Pulse 81 07/26/24 15:25 Respiratory Rate 18 07/26/24 15:25 Blood Pressure 116/60 07/26/24 15:25 Pulse Oximetry 97 07/26/24 15:25 Pulse 81 07/26/24 15:25 Respiratory Rate 18 07/26/24 15:25 Blood Pressure 116/60 07/26/24 15:25 Pulse Oximetry 97 07/26/24 15:25 Pain Level 5 07/26/24 16:40 Lab/Test Results Lab/Test Results: Laboratory Tests Range/Units 07/26/24 16:07 WBC (4.4-10.8) 10^3/uL 7.06 RBC (3.93-5.22) 10^6/uL 4.31 Hgb (11.2-15.7) g/dL 13.1 Hct (36.0-46.0) % 40.2 MCV (80-95) fL 93 MCH (27.0-33.0) pg 30.4 MCHC (32.0-36.0) % 32.6 RDW (11.7-14.6) % 13.4 Plt Count (130-400) 10^3/uL 241 MPV (8.0-11.0) fL 9.1 Immature Gran % % 0.3 Neutrophils % % 60.5 Lymphocytes % % 29.2 Monocytes % % 7.1 Eosinophils % % 2.3 Basophils % % 0.6 Nucleated RBC % (0.0-0.3) % 0.0 Absolute Neutrophils (1.2-6.7) 10^3/uL 4.28 Absolute Lymphocytes (1.2-3.4) 10^3/uL 2.06 Absolute Monocytes (0.1-0.8) 10^3/uL 0.50 Absolute Eosinophils (0.0-0.7) 10^3/uL 0.16 Absolute Basophils (0.0-0.2) 10^3/uL 0.04 Sodium (136-145) mmol/L 141 Potassium (3.5-5.1) mmol/L 3.5 Chloride (98-107) mmol/L 103 Carbon Dioxide (21.0-32.0) mmol/L 28.1 Anion Gap (3-11) mmol/L 9.9 BUN (7-18) mg/dL 8 Creatinine (0.55-1.02) mg/dL 0.8 Est GFR (CKD-EPI 2020) (mL/min/1.73m2) 90.27 Glucose (74-106) mg/dL 100 Calcium (8.5-10.1) mg/dL 9.3 Total Bilirubin (0.2-1.0) mg/dL 0.3 AST (15-37) U/L 15 ALT (14-59) U/L 18 Alkaline Phosphatase (46-116) U/L 92 C-Reactive Protein (<or=0.5) mg/dL < 0.50 Total Protein (6.4-8.2) g/dL 8.0 Albumin (3.4-5.0) g/dL 4.0 TSH (0.36-3.74) uIU/mL 1.18 Medical Decision Making This dictation utilizes [id number] dictation software and may contain unedited grammatical errors. 48 year-old female presents to ED today by POV/ambulating with a chief complaint of severe headaches, daily for 3 weeks, seen at PCP recommended ED evaluation. Quality described as severe L sided headache, with some drooping of L eye and lacrimation with headache, mild blurry vision, L ear pain, no radiation to fever, motor deficit, slurred speech, chest pain, loss of vision/hearing, shortness of breath, vertigo. Severity is described as 10/10. Palliating factors include nothing helping at home. Provoking factors include nothing specific. Events leading up to the incident/Associated Symptoms: Patient has not had imaging performed yet. Patients' medical history: Thunderclap headache per PCP, emphysema, low back pain. Family and social history: Noncontributory. Pertinent exam findings / vital signs include L TM cerumen impaction, no mastoid tenderness, no tenderness to light touch of the left parietal scalp, no nuchal rigidity, vision grossly intact, EOMs intact without nystagmus, afebrile and nontoxic. Differential / pathologies of concern include migraine syndrome, cluster headache, ICH, acute otitis media. Diagnostic studies of: - CTA brain and neck, CBC, CMP, CRP, TSH. - CT of the brain and neck shows no acute abnormality within the cranium, shows a left maxillary sinusitis will treat - CBC unremarkable - CMP unremarkable - CRP negative do not suspect vasculitis - TSH within normal limits Interventions of: - Migraine treatment regimen including IV Tylenol, Toradol, diphenhydramine, metoclopramide, dexamethasone, p.o. sumatriptan, IV fluids NS, given Colace for ear irrigation at home with mixture of Colace and hydrogen peroxide. - Rx for Augmentin for sinusitis -Rx for sumatriptan for migraine prevention ED Course/Assessment/Plan: 48-year-old female presents with ongoing 3 weeks of left-sided headache and ear pain, her story is suspicious for cluster migraine with some proptosis ongoing during the headache episodes, she has been seen by primary care, her CTA today is negative for any acute intracranial abnormalities or vascular abnormalities, her inflammatory marker of CRP is negative-no evidence of temporal arteritis with this laboratory value as well as clinical exam no tenderness to light touch. Her laboratory workup is benign, incidental finding of left sinusitis and left cerumen impaction on imaging and exam respectively, treated sinusitis with Augmentin, recommend at home ear irrigation with hopeful improvement of left-sided headache with relief of cerumen impaction, started on sumatriptan daily for migraine prevention and recommend follow-up with PCP and possible referral to neurology for MRI. Findings not consistent with stroke, intracranial hemorrhage, mastoiditis, neurologic abnormality, infection. Disposition of Cluster Headache, Left Maxillary Sinusitis. Patient verbalized understanding of the plan and return to ED criteria and engaged in shared decision making. Medical Records Medical records reviewed: Yes I reviewed the patient's medical records. Imaging Data Radiologic Study: Attestation: I personally reviewed and interpreted this imaging study as follows: Imaging: CT Scan Radiologist's impression: EXAM: CT BRAIN NECK CTA CLINICAL HISTORY: severe sudden onset headaches [id number]. TECHNIQUE: Imaging Protocol: Axial CT angiography was performed with multi-slice acquisition and multi-planar and/or 3D reconstructions. CONTRAST MATERIAL: Intravenous: Omnipaque 350 contrast volume:70 mL COMPARISON: No exams were available for comparison FINDINGS: CT Head W/O and W: Ventricles and Extra axial spaces: Normal in size and morphology for the patient's age. Hemorrhage: None. Cerebral parenchyma: No mass effect or evidence of an acute territorial infarct. Midline shift: None. Brainstem/Cerebellum: Normal. Calvarium: Normal. Visualized Paranasal sinuses/Mastoids: There is near complete opacification of the left maxillary sinus. There is mild mucosal thickening in the right maxillary sinus. The remaining visualized paranasal sinuses are clear. There is a small amount of fluid seen in the left mastoid air cells. The right mastoid air cells are clear. Soft Tissues: Unremarkable. Enhancement: Unremarkable. CTA Neck W: Common Carotid: Right: No dissection, occlusion or significant stenosis. Left: No dissection, occlusion or significant stenosis. External Carotid: Right: No occlusion or significant stenosis. Left: No occlusion or significant stenosis. Internal Carotid: Right: No dissection, occlusion or significant stenosis. Left: No dissection, occlusion or significant stenosis. Vertebral Artery: Right: No dissection, occlusion or significant stenosis. Left: No dissection, occlusion or significant stenosis. Lung Apices: Moderate emphysematous changes are seen in the lungs. Bones: Within normal limits for the patient's age. Soft Tissues: Normal. Thyroid gland: There are few tiny hypodensities in the thyroid gland. No follow-up is recommended. CTA Brain W: Internal Carotid Arteries: Normal. Anterior Cerebral Arteries: Right: No aneurysm, occlusion or significant stenosis. Left: No aneurysm, occlusion or significant stenosis. Middle Cerebral Arteries: Right: No aneurysm, occlusion or significant stenosis. Left: No aneurysm, occlusion or significant stenosis. Posterior Cerebral Arteries: Right: No aneurysm, occlusion or significant stenosis. Left: No aneurysm, occlusion or significant stenosis. Vertebral Arteries: Right: No aneurysm, occlusion or significant stenosis. Left: No aneurysm, occlusion or significant stenosis. Basilar Artery: No aneurysm, occlusion or significant stenosis. IMPRESSION: 1. No large vessel occlusion or significant stenosis on the CT angiography of the head. 2. No acute intracranial process. 3. No occlusion or significant stenosis on the CT angiography of the neck. 4. Left maxillary sinusitis. Lab Data Lab results reviewed: Yes I reviewed the patient's lab results. Labs: Laboratory Tests Range/Units 07/26/24 16:07 WBC (4.4-10.8) 10^3/uL 7.06 RBC (3.93-5.22) 10^6/uL 4.31 Hgb (11.2-15.7) g/dL 13.1 Hct (36.0-46.0) % 40.2 MCV (80-95) fL 93 MCH (27.0-33.0) pg 30.4 MCHC (32.0-36.0) % 32.6 RDW (11.7-14.6) % 13.4 Plt Count (130-400) 10^3/uL 241 MPV (8.0-11.0) fL 9.1 Immature Gran % % 0.3 Neutrophils % % 60.5 Lymphocytes % % 29.2 Monocytes % % 7.1 Eosinophils % % 2.3 Basophils % % 0.6 Nucleated RBC % (0.0-0.3) % 0.0 Absolute Neutrophils (1.2-6.7) 10^3/uL 4.28 Absolute Lymphocytes (1.2-3.4) 10^3/uL 2.06 Absolute Monocytes (0.1-0.8) 10^3/uL 0.50 Absolute Eosinophils (0.0-0.7) 10^3/uL 0.16 Absolute Basophils (0.0-0.2) 10^3/uL 0.04 Sodium (136-145) mmol/L 141 Potassium (3.5-5.1) mmol/L 3.5 Chloride (98-107) mmol/L 103 Carbon Dioxide (21.0-32.0) mmol/L 28.1 Anion Gap (3-11) mmol/L 9.9 BUN (7-18) mg/dL 8 Creatinine (0.55-1.02) mg/dL 0.8 Est GFR (CKD-EPI 2020) (mL/min/1.73m2) 90.27 Glucose (74-106) mg/dL 100 Calcium (8.5-10.1) mg/dL 9.3 Total Bilirubin (0.2-1.0) mg/dL 0.3 AST (15-37) U/L 15 ALT (14-59) U/L 18 Alkaline Phosphatase (46-116) U/L 92 C-Reactive Protein (<or=0.5) mg/dL < 0.50 Total Protein (6.4-8.2) g/dL 8.0 Albumin (3.4-5.0) g/dL 4.0 TSH (0.36-3.74) uIU/mL 1.18 Quality:SDOH Health Related Social Needs: Health related social needs details [facility]ating [facility] All Active Problems (Updated 07/26/24 @ 18:06 by RICHIE Sanchez) Left maxillary sinusitis (Acute) Cluster headache (Acute) Thunderclap headache (Acute) Ex-smoker (Acute) Pulmonary emphysema (Acute) Preoperative general physical examination (Acute) Vaginal discharge (Acute) Vertebrogenic low back pain (Acute) Breast implant rupture (Acute) Ruptured left breast implant (Acute) Lumbar radiculitis (Acute) Lumbar spondylosis (Acute) Low back pain (Acute) Vaginal odor (Acute) S/P breast augmentation (Chronic) No active medical problems (Chronic) Family History Mother Lymphoma Social History Smoking/Tobacco Use Status: Current every day Tobacco Type: cigarettes Tobacco: How many years used: 32 Quit status: considering quitting Smoking risk assessment performed?: Yes Alcohol Intake: current Alcohol Intake frequency: a few times a month Drug use: Daily Substance use type: marijuana Counseling given: No Adopted: No Caregiver/Support person: No Foster care: No Household members: children Housing: house Number of Children: 3 number of grandchildren: 3 Communication Needs: None Education Level: high school Do you need help understanding health information?: Never Pets and animals: Yes (1) Pets and animals: cat(s) Sexually active: No Do you think of yourself as: straight/heterosexual Current gender identity: female What is your relationship status?: refused to answer How often do you talk on the phone with friends or family?: three or more times per week How often do you get together with friends or relatives?: decline to answer Do you belong to any clubs or organized social groups?: no Panel score (0-1 are the most socially isolated patients): 1 Donna/Druze: Yazdanism Special donna needs: No Seatbelt use: always Drive intox or ride w/intox speedboat driver: No Do you feel safe at home: Yes Do you feel safe in your relationship?: Yes
[2024-07-26] MEDS: Docusate Sodium 100 MG/10 ML CUP PO (18:59)
== END 2024-07-26 18:59 | disposition home or self-care (01) ==
PROVIDERS: Emergency Provider Physician Assistant; PCP Family Medicine
DX: G44.53 Primary thunderclap headache (principal); J32.0 Chronic maxillary sinusitis
CPT/HCPCS: 99284; 99285; 96374; 96375; 70496; 70498; 80053; 96361; 84443; 85025; 86140; J0131; J1100; J1200; J1885; J2765; J3490